=== PATIENT | female | born 1980 | race Caucasian/White ===

== ENCOUNTER → 2017-06-18 | Outpatient (CLI) | payer OTHER ==
[2016-11-03 17:40] VITALS: BP 115/71
[2017-06-18 09:18] LABS: ALANINE AMINOTRANSFERASE 18 Units/L (12-78); ALBUMIN 3.4 g/dL (3.4-5.0); ALKALINE PHOSPHATASE 47 Units/L (46-116); AMYLASE 166 Units/L (25-115); ASPARTATE AMINO TRANSFERASE 18 Units/L (15-37); BLOOD UREA NITROGEN 13 mg/dL (7-18); CALCIUM 9.2 mg/dL (8.5-10.1); CARBON DIOXIDE 31.4 mmol/L (21-32); CHLORIDE 105 mmol/L (98-107); CREATININE 0.91 mg/dL (0.55-1.02); LIPASE 597 Units/L (73-393); SODIUM 142 mmol/L (136-145); TOTAL PROTEIN 7.2 g/dL (6.4-8.2); eGFR BLACK RACES > 60 (>60); eGFR NON BLACK RACES > 60 (>60)
--- NOTE | 2017-06-18 09:19 | RAD ---
Examination: Abdomen series with PA chest History: Generalized abdominal pain Findings: PA chest demonstrates normal heart size with no acute infiltrate, pleural fluid or pneumope ritoneum. In the abdomen, supine and erect views demonstrate a nonobstructing gas pattern without mary dence for ileus, perforation, ascites or pathologic calcification. Calcifications in the pelvis are t ypical for vascular origin. No visceral enlargement is noted. Impression: No acute chest or abdomen abnormality demonstrated. Reported By:
== END ==
LOC: LAB 08:42
PROVIDERS: ATTEND Obstetrics & Gynecology Obstetrics
DX: K85.80 Other acute pancreatitis without necrosis or infection (principal); R10.84 Generalized abdominal pain
CPT/HCPCS: 36415; 74022; 80053; 82150; 83690

== ENCOUNTER 2017-08-06 23:04 | Emergency (ER) | payer OTHER ==
[2017-08-06 23:10] VITALS: BMI 23.3
[2017-08-06 23:15] VITALS: BP 107/57
[2017-08-07] MEDS ORDERED: TORADOL 60 MG VIAL IM ONE (00:50)
[2017-08-07] MEDS ORDERED: TORADOL 60 MG VIAL ONE (00:51)
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
--- NOTE | 2017-08-07 02:09 | RAD ---
Left ankle, three views Indication: Ankle injury Findings: The ankle joint spaces are normally maintained. No acute cortical disruption or malalignmen t identified. No obvious soft tissue injury. Impression: No acute skeletal injury of the left ankle. Reported By:
== END 2017-08-07 02:50 | disposition home or self-care (01) | DRG 914 ==
LOC: ER 23:04
DX: S99.912A Unspecified injury of left ankle, initial encounter (principal); W17.89XA Other fall from one level to another, initial encounter; Y92.89 Other specified places as the place of occurrence of the external cause
CPT/HCPCS: 73610; 96372; 99282; J1885

== ENCOUNTER → 2017-11-03 | Outpatient (CLI) | payer OTHER ==
--- NOTE | 2017-11-04 05:53 | RAD ---
Examination: Cervical spine, AP and lateral views History: Pain Findings: AP, lateral and open-mouth odontoid views demonstrate normal appearance of vertebrae, disc spaces and prevertebral soft tissues. There is no evidence for bone destruction, fracture or signific ant degenerative disease. Impression: No abnormality demonstrated. Reported By:
== END ==
LOC: RAD 16:47
PROVIDERS: ATTEND Internal Medicine
DX: M54.2 Cervicalgia (principal)
CPT/HCPCS: 72040